=== PATIENT | female | born 1955 | race Caucasian/White ===

== ENCOUNTER → 2023-06-09 09:57 | Outpatient (CLI) | payer MEDICARE, MEDICAID, SELFPAY ==
[2023-06-09 10:28] LABS: Basophils % 0.6 % (0.1-2.0); Eosinophils # 0.2 K/mm3 (0.0-0.4); Eosinophils % 2.2 % (0.1-12.0); Hematocrit 41.5 % (37.0-47.0); Hemoglobin 13.7 g/dL (12.2-16.2); Lymphocytes # 1.2 K/mm3 (0.7-4.5); Lymphocytes % 17.1 % (10-50); Mean Corpuscular HGB Conc 33.1 g/dL (31.8-35.4); Mean Corpuscular Hemoglobin 29.1 pg (27.0-31.2); Mean Corpuscular Volume 88.1 fl (81-99); Mean Platelet Volume 7.9 fl (7.4-10.4); Monocytes # 0.6 K/mm3 (0.1-1.0); Monocytes % 8.4 % (1.7-9.3); Neutrophils # 4.9 K/mm3 (1.8-7.8); Neutrophils % 71.7 % (37.0-80.0); Platelet Count 208 K/mm3 (142-424); Red Blood Count 4.71 M/mm3 (4.20-5.40); Red Cell Distribution Width 13.9 % (11.5-17.5); White Blood Count 6.9 K/mm3 (4.8-10.8)
[2023-06-09 10:38] LABS: Hemoglobin A1C 5.4 % (4.0-6.0)
[2023-06-09 11:14] LABS: Alanine Aminotransferase 25 U/L (12-78); Albumin/Globulin Ratio 1.4 (1.1-1.8); Alkaline Phosphatase 65 U/L (38-126); Anion Gap 14.4 mEq/L (5-15); Aspartate Amino Transferase 26 U/L (14-36); Blood Urea Nitrogen 13 mg/dl (7-17); Calcium 8.9 mg/dl (8.4-10.2); Carbon Dioxide 27 mmol/L (22.0-30.0); Chloride 102 mmol/L (98-107); Cholesterol 170 mg/dl (140-200); Estimated Glomerular Filt Rate 83 ml/min (>60); GFR (African American) 100 ML/MIN (>60); Globulin 2.9 g/dL (1.3-3.2); Glucose 81 mg/dl (74-100); HDL Cholesterol 43 mg/dl (40-60); Potassium 4.4 mmoL/L (3.5-5.1); Sodium 139 mmol/L (136-145); Total Protein,Serum 6.9 g/dl (6.3-8.2)
[2023-06-09 11:17] LABS: Bilirubin,Total < 0.1 mg/dl (0.2-1.3); Triglycerides 431 mg/dl (30-150)
[2023-06-09 11:25] LABS: Creatinine,Urine Random 34 mg/dL (Not Estab.); Direct LDL Cholesterol 77.59 mg/dL (100-129)
[2023-06-09 11:29] LABS: Microalbumin < 6.000 mg/L (0-16.7)
[2023-06-09 11:44] LABS: Thyroid Stimulating Hormone 1.08 uIU/mL (0.465-4.68)
[2023-06-09 12:02] LABS: Vitamin B12 789 pg/mL (239-931)
== END ==
PROVIDERS: PCP Nurse Practitioner Family; Visit Provider Nurse Practitioner Family
DX: I10 Essential (primary) hypertension (principal); E11.9 Type 2 diabetes mellitus without complications; F02.80 Dementia in other diseases classified elsewhere, unspecified severity, without behavioral disturbance, psychotic disturbance, mood disturbance, and anxiety; G30.9 Alzheimer's disease, unspecified; G43.709 Chronic migraine without aura, not intractable, without status migrainosus; R53.81 Other malaise
CPT/HCPCS: 36415; 80053; 80061; 82043; 82570; 82607; 83036; 84443; 85025

== ENCOUNTER → 2023-07-27 10:01 | Outpatient (CLI) | payer MEDICARE, MEDICAID, SELFPAY ==
[2023-07-27 10:52] LABS: Basophils % 0.6 % (0.1-2.0); Eosinophils # 0.2 K/mm3 (0.0-0.4); Eosinophils % 2.9 % (0.1-12.0); Hematocrit 38.1 % (37.0-47.0); Hemoglobin 13.5 g/dL (12.2-16.2); Lymphocytes # 1.3 K/mm3 (0.7-4.5); Lymphocytes % 24.8 % (10-50); Mean Corpuscular HGB Conc 35.5 g/dL (31.8-35.4); Mean Corpuscular Hemoglobin 30.8 pg (27.0-31.2); Mean Corpuscular Volume 86.6 fl (81-99); Mean Platelet Volume 7.7 fl (7.4-10.4); Monocytes # 0.7 K/mm3 (0.1-1.0); Monocytes % 13.1 % (1.7-9.3); Neutrophils # 3.1 K/mm3 (1.8-7.8); Neutrophils % 58.6 % (37.0-80.0); Platelet Count 196 K/mm3 (142-424); Red Cell Distribution Width 13.5 % (11.5-17.5); White Blood Count 5.2 K/mm3 (4.8-10.8)
[2023-07-27 11:26] LABS: Alanine Aminotransferase 23 U/L (12-78); Albumin Level 4.2 g/dl (3.5-5.0); Albumin/Globulin Ratio 1.6 (1.1-1.8); Alkaline Phosphatase 44 U/L (38-126); Anion Gap 11.6 mEq/L (5-15); Aspartate Amino Transferase 30 U/L (14-36); Blood Urea Nitrogen 15 mg/dl (7-17); Calcium 9.1 mg/dl (8.4-10.2); Carbon Dioxide 28 mmol/L (22.0-30.0); Chloride 99 mmol/L (98-107); Estimated Glomerular Filt Rate 71 ml/min (>60); GFR (African American) 86 ML/MIN (>60); Globulin 2.7 g/dL (1.3-3.2); Glucose 80 mg/dl (74-100); Lactate Dehydrogenase 175 U/L (313-618); Potassium 4.6 mmoL/L (3.5-5.1); Sodium 134 mmol/L (136-145); Total Protein,Serum 6.9 g/dl (6.3-8.2)
[2023-07-27 11:49] LABS: Bilirubin,Total 0.1 mg/dl (0.2-1.3)
== END ==
PROVIDERS: PCP Nurse Practitioner Family; Visit Provider Internal Medicine Medical Oncology
DX: C85.90 Non-Hodgkin lymphoma, unspecified, unspecified site (principal)
CPT/HCPCS: 36415; 80053; 83615; 85025

== ENCOUNTER → 2023-08-03 09:06 | Outpatient (CLI) | payer MEDICARE, MEDICAID, SELFPAY ==
--- NOTE | 2023-08-03 09:10 | XR_ITS ---
FINAL REPORT CLINICAL HISTORY: left knee pain FINDINGS: AP, lateral and oblique views of the left knee were obtained. There is no prior exam for comparison. There is no acute osseous abnormality of the left knee. The joint space is preserved. The soft tissues are normal. There is no joint effusion. IMPRESSION: No acute osseous abnormality of the left knee. Reviewed, Interpreted and Dictated by Christa Pisano MD Transcribed by Radha Eason Authenticated and [facility]
--- NOTE | 2023-08-03 09:10 | XR_ITS ---
FINAL REPORT CLINICAL HISTORY: right knee pain FINDINGS: AP, lateral and oblique views of the right knee were obtained. There is no prior exam for comparison. There is no acute osseous abnormality of the right knee. The joint space is preserved. The soft tissues are normal. There is no joint effusion. IMPRESSION: No acute osseous abnormality of the right knee. Reviewed, Interpreted and Dictated by Christa Pisano MD Transcribed by Radha Eason Authenticated and [facility]
== END ==
LOC: RAD 09:07
PROVIDERS: PCP Nurse Practitioner Family; Visit Provider Orthopaedic Surgery
DX: M25.562 Pain in left knee (principal); M25.561 Pain in right knee
CPT/HCPCS: 73562

== ENCOUNTER → 2023-08-08 20:08 | Outpatient (CLI) | payer MEDICARE, MEDICAID, SELFPAY | PROVIDERS: PCP Nurse Practitioner Family; Visit Provider Nurse Practitioner Family | DX: G47.33 Obstructive sleep apnea (adult) (pediatric) (principal) | CPT/HCPCS: 95810 ==

== ENCOUNTER 2023-10-23 10:25 | Outpatient (CLI) | payer MEDICARE, MEDICAID, SELFPAY ==
[2023-10-23 11:37] LABS: Basophils # 0.1 K/mm3 (0-0.2); Basophils % 0.9 % (0.1-2.0); Eosinophils # 0.1 K/mm3 (0.0-0.4); Eosinophils % 2.4 % (0.1-12.0); Hemoglobin 14.3 g/dL (12.2-16.2); Lymphocytes # 1.7 K/mm3 (0.7-4.5); Lymphocytes % 33.9 % (10-50); Mean Corpuscular HGB Conc 34.1 g/dL (31.8-35.4); Mean Corpuscular Hemoglobin 30.7 pg (27.0-31.2); Mean Corpuscular Volume 90.1 fl (81-99); Monocytes # 0.6 K/mm3 (0.1-1.0); Monocytes % 11.8 % (1.7-9.3); Neutrophils # 2.6 K/mm3 (1.8-7.8); Neutrophils % 51.1 % (37.0-80.0); Platelet Count 202 K/mm3 (142-424); Red Blood Count 4.66 M/mm3 (4.20-5.40); White Blood Count 5.1 K/mm3 (4.8-10.8)
[2023-10-23 12:04] LABS: Alanine Aminotransferase 24 U/L (12-78); Albumin/Globulin Ratio 1.5 (1.1-1.8); Alkaline Phosphatase 44 U/L (38-126); Anion Gap 10.6 mEq/L (5-15); Aspartate Amino Transferase 28 U/L (14-36); Bilirubin,Total 0.4 mg/dl (0.2-1.3); Blood Urea Nitrogen 19 mg/dl (7-17); Calcium 9.3 mg/dl (8.4-10.2); Carbon Dioxide 27 mmol/L (22.0-30.0); Chloride 107 mmol/L (98-107); Estimated Glomerular Filt Rate 62 ml/min (>60); GFR (African American) 75 ML/MIN (>60); Globulin 2.6 g/dL (1.3-3.2); Glucose 94 mg/dl (74-100); Lactate Dehydrogenase 173 U/L (313-618); Potassium 4.6 mmoL/L (3.5-5.1); Sodium 140 mmol/L (136-145); Total Protein,Serum 6.6 g/dl (6.3-8.2)
== END 2023-10-23 23:59 ==
PROVIDERS: PCP Internal Medicine Adolescent Medicine; Visit Provider Internal Medicine Medical Oncology
DX: C85.90 Non-Hodgkin lymphoma, unspecified, unspecified site (principal)
CPT/HCPCS: 36415; 80053; 83615; 85025

== ENCOUNTER 2023-10-25 08:27 | Outpatient (CLI) | payer MEDICARE, MEDICAID, SELFPAY ==
--- NOTE | 2023-10-25 08:43 | CT_ITS ---
FINAL REPORT CLINICAL HISTORY: .lymphoma FINDINGS: CT CHEST without contrast COMPARISON: None . TECHNIQUE: Axial CT without IV contrast administration. FINDINGS: No acute lung disease is present . A 4 mm nodule seen in the right lung apex posteriorly. This is nonspecific. No pleural or pericardial effusion is seen . No adenopathy or mass lesion is present . Axillary regions are unremarkable. IMPRESSION: 1. No intrathoracic or axillary adenopathy 2. Nonspecific 4 mm right apical nodule. Favor benign. CT follow-up recommended in 6 months. This study was performed using automated techniques to achieve radiation exposure as low as reasonably achievable Authenticated and [facility]
--- NOTE | 2023-10-25 08:43 | CT_ITS ---
FINAL REPORT TECHNIQUE: Oral and IV contrast enhanced exam CLINICAL HISTORY: HX LYMPHOMA FINDINGS: Abdomen: Lung bases are clear. The gallbladder is surgically absent. No adenopathy is present. Spleen is unremarkable. Liver has an unremarkable CT appearance. The pancreas and adrenal glands are unremarkable. Kidneys show no mass or obstruction. No bowel obstruction or fluid collection is seen. Pelvis: The appendix is not visualized. Pelvic bowel loops are unremarkable. No fluid collection or adenopathy is seen. Patient is status post hysterectomy. No iliac chain or inguinal adenopathy is present. IMPRESSION: Unremarkable CT evaluation of the abdomen and pelvis. No adenopathy. Authenticated and [facility]
[2023-10-25] MEDS: IOPAMIDOL-370 (76%);100ML BOTTLE 75 ML IV (09:35)
[2023-10-25] MEDS: SODIUM CHLORIDE 0.9% 10ML SYR (RAD ONLY) 10 ML IV (09:35)
[2023-10-25 10:20] LABS: Iron 75 ug/dL (37-170)
[2023-10-25 10:29] LABS: Total Iron Binding Capacity 365 ug/dL (265-497)
[2023-10-25 10:31] LABS: Thyroid Stimulating Hormone 3.01 uIU/mL (0.465-4.68)
[2023-10-25 10:56] LABS: Ferritin 12.6 ng/ml (11.1-264)
[2023-10-25 11:06] LABS: Vitamin B12 784 pg/mL (239-931)
[2023-10-25 11:13] LABS: Folate > 20.00 ng/mL
== END 2023-10-25 23:59 ==
PROVIDERS: Nurse Practitioner Family; PCP Nurse Practitioner Family; Visit Provider Internal Medicine Medical Oncology
DX: R41.3 Other amnesia (principal); E83.10 Disorder of iron metabolism, unspecified; Z85.72 Personal history of non-Hodgkin lymphomas
CPT/HCPCS: 36415; 71260; 74177; 82607; 82728; 82746; 83540; 83550; 84443; Q9967

== ENCOUNTER 2023-11-06 16:50 | Emergency (ER) | payer MEDICARE, MEDICAID, SELFPAY ==
[2023-11-06 16:52] VITALS: BP 201/95; PULSE 72; RESP 20; TEMP 36.8; O2SAT 98; BMI 27.3
--- NOTE | 2023-11-06 17:13 | XR_ITS ---
PROCEDURE INFORMATION: Exam: XR Chest Exam date and time: 11/06/2023 5:26 PM Age: 68 years old Clinical indication: Cough TECHNIQUE: Imaging protocol: Radiologic exam of the chest. Views: 1 view. COMPARISON: CT CHEST W CON 10/25/2023 9:17 AM FINDINGS: Lungs: Bibasilar airspace opacities may represent early consolidation/multifocal pneumonia. Pleural spaces: Unremarkable. No pleural effusion. No pneumothorax. Heart/Mediastinum: Unremarkable. No cardiomegaly. Bones/joints: Unremarkable. IMPRESSION: Bibasilar airspace opacities may represent early consolidation/multifocal pneumonia in the appropriate clinical setting.
--- NOTE | 2023-11-06 17:14 | ED_ITS ---
Discharge Plan Disposition Patient Disposition: Home, Self-Care Prescriptions Prescriptions: New azithromycin [Zithromax Z-Julio] 250 mg tablet 250 mg PO DAILY 4 Days Qty: 4 0RF Rx Instructions: start on day 2 of therapy cefdinir 300 mg capsule 300 mg PO BID 7 Days Qty: 14 0RF prednisone 50 mg tablet 50 mg PO DAILY 4 Days Qty: 4 0RF No Action fenofibrate nanocrystallized 48 mg tablet PO Patient Comments: TAKE 1 TABLET BY MOUTH ONCE DAILY losartan 50 mg tablet 50 mg PO DAILY docusate sodium 100 mg capsule 100 mg PO DAILY oxcarbazepine 600 mg tablet 600 mg PO BID escitalopram oxalate 20 mg tablet 20 mg PO QHS alendronate 70 mg tablet 70 mg PO WEEKLY aspirin [Adult Aspirin Regimen] 81 mg tablet,delayed release (DR/EC) 81 mg PO DAILY albuterol-budesonide 90-80 mcg/actuation HFA aerosol inhaler 2 inh inhalation DAILY PRN metformin 500 mg tablet 500 mg PO DAILY atorvastatin [Lipitor] 40 mg tablet 40 mg PO HS famotidine 20 mg tablet 20 mg PO HS estradiol 1 mg tablet 1 mg PO DAILY Rx Instructions: off 1 week; repeat cycle amitriptyline 10 mg tablet 10 mg PO HS topiramate 50 mg tablet 50 mg PO BID omeprazole 20 mg capsule,delayed release(DR/EC) 20 mg PO DAILY montelukast 10 mg tablet 10 mg PO HS metoprolol succinate 25 mg tablet extended release 24 hr 25 mg PO DAILY trazodone 100 mg tablet 100 mg PO HS PRN memantine 10 mg tablet 10 mg PO BID Qty: 30 5RF donepezil 10 mg tablet 10 mg PO HS Qty: 30 5RF Referrals Follow up/Referrals: Raad Aragon MD [Primary Care Provider] - See instructions Activity Restrictions/Add. Instructions Additional Instructions/Restrictions: At this time it was felt you are safe to be discharged home. If new or worsening symptoms please do not hesitate to return the emergency department. If symptoms persist please follow-up with your family doctor as you are able. Please take your medications as prescribed. Clinical Impressions Clinical Impression: Acute exacerbation of chronic obstructive pulmonary disease, Pneumonia Discharge ED Provider: Pee Kramer General Adult HPI General Chief complaint: Upper Respiratory Infection Stated complaint: cough, sore throat, fever Time Seen by Provider: 11/06/23 16:58 Mode of Arrival: Ambulatory Source of Information: Patient Limitations: No Limitations Description of Symptoms (Recalled from ER Triage Doc. by RN): pt has had a cough x 1 week and has tried several differnt OTC treatments as well as rescue inhaler and nebulizer, as week as progressed patient has gotten a headache, sore throat, runny nose History of Present Illness HPI narrative: Patient is a 68-year-old female past medical history of [id number] diabetes, COPD who presents to the emergency department for evaluation of shortness of breath and cough. Onset was acute, last 6 to 7 days, there is associated rhinorrhea. Symptoms have been refractory to yece-ygn-[id number] cough medication. There has been some response to her DuoNebs at home. Due to persistent symptoms she presents here for continued evaluation. Related Data Home Medications Medication Instructions Recorded Confirmed albuterol 90 mcg-budesonide 80 2 inh inhalation DAILY PRN 07/25/23 10/31/23 mcg/actuation HFA aerosol inhaler alendronate 70 mg tablet 70 mg PO WEEKLY 07/25/23 10/31/23 amitriptyline 10 mg tablet 10 mg PO HS 07/25/23 10/31/23 aspirin 81 mg tablet,delayed 81 mg PO DAILY 07/25/23 10/31/23 release (Adult Aspirin Regimen) atorvastatin 40 mg tablet (Lipitor) 40 mg PO HS 07/25/23 10/31/23 docusate sodium 100 mg capsule 100 mg PO DAILY 07/25/23 10/31/23 escitalopram oxalate 20 mg tablet 20 mg PO QHS 07/25/23 10/31/23 estradiol 1 mg tablet 1 mg PO DAILY 07/25/23 10/31/23 famotidine 20 mg tablet 20 mg PO HS 07/25/23 10/31/23 fenofibrate nanocrystallized 48 mg mg PO 07/25/23 10/31/23 tablet losartan 50 mg tablet 50 mg PO DAILY 07/25/23 10/31/23 metformin 500 mg tablet 500 mg PO DAILY 07/25/23 10/31/23 metoprolol succinate 25 mg 25 mg PO DAILY 07/25/23 10/31/23 tablet,extended release 24 hr montelukast 10 mg tablet 10 mg PO HS 07/25/23 10/31/23 omeprazole 20 mg capsule,delayed 20 mg PO DAILY 07/25/23 10/31/23 release oxcarbazepine 600 mg tablet 600 mg PO BID 07/25/23 10/31/23 topiramate 50 mg tablet 50 mg PO BID 07/25/23 10/31/23 trazodone 100 mg tablet 100 mg PO HS PRN 07/25/23 10/31/23 Previous Rx's Medication Instructions Recorded donepezil 10 mg tablet 10 mg PO HS Memory loss #30 tabs 10/24/23 memantine 10 mg tablet 10 mg PO BID #30 tabs 10/24/23 azithromycin 250 mg tablet 250 mg PO DAILY 4 days #4 tabs 11/06/23 (Zithromax Z-Julio) cefdinir 300 mg capsule 300 mg PO BID 7 days #14 caps 11/06/23 prednisone 50 mg tablet 50 mg PO DAILY 4 days #4 tabs 11/06/23 Allergies Allergy/AdvReac Type Severity Reaction Status Date / Time No Known Allergies Allergy Verified 10/31/23 09:57 [facility] Disclaimer: The information contained in this section may have been updated after the patient was seen, as this information can be updated by other users. Medical History Anxiety Cataracts, bilateral COPD (chronic obstructive pulmonary disease) Depression DM type 2 (diabetes mellitus, type 2) GERD (gastroesophageal reflux disease) Hyperlipidemia Lymphoma Surgical History H/O total hysterectomy H/O tubal ligation History of carpal tunnel release History of cholecystectomy Family History Other Cancer Hyperlipidemia Hypertension Social History Smoking Status: Never smoker alcohol intake: never current occupational status: unemployed Travel in the last 8 weeks: None ROS Obtained: Yes Systems reviewed as appropriate & no additional complaints except as documented Physical Exam General General appearance: alert and in no apparent distress Head Head exam: atraumatic and normocephalic Eye Eye exam: Present PERRL and EOMI ENT ENT exam: Present mucous membranes moist Neck Neck exam: Present normal inspection Chest Chest inspection: Present normal inspection and symmetric chest wall rise Respiratory Respiratory exam: Present wheezes (end expiratory); Absent respiratory distress Cardiovascular Cardiovascular exam: Present regular rate and normal rhythm Abdominal Exam Abdominal exam: Present soft Extremities Exam Extremities exam: Present normal inspection Neurological Exam Neurological exam: Present alert Psychiatric Psychiatric exam: Present normal affect Skin Skin exam: Present warm and dry Medical Decision Making Billy Inquiry Pt receiving controlled substance: No Vital Signs: 11/06/23 16:52 11/06/23 17:20 11/06/23 18:01 Temperature 98.3 F Temperature Source Oral Pulse Rate 74 78 Pulse Rate [Right Radial] 72 Respiratory Rate 20 20 20 Blood Pressure 187/93 H 204/87 H Blood Pressure [Right Arm] 201/95 H Blood Pressure Mean 96 126 Blood Pressure Mean [Right Arm] 130 02 Sat by Pulse Oximetry 98 98 100 Oxygen Delivery Method Room Air 11/06/23 18:23 11/06/23 18:23 Temperature Temperature Source Pulse Rate 78 65 Pulse Rate [Right Radial] Respiratory Rate Blood Pressure Blood Pressure [Right Arm] Blood Pressure Mean Blood Pressure Mean [Right Arm] 02 Sat by Pulse Oximetry Oxygen Delivery Method Lab Data Lab Results 11/06/23 17:00: SARS-CoV-2 (PCR) Not detected, Influenza A Untype (PCR) Not detected, Influenza Type B (PCR) Not detected Orders (Tests/Meds): ED MEDICATIONS Discontinued Medications Generic Name Dose Route Start Last Admin Trade Name Freq PRN Reason Stop Dose Admin Albuterol/Ipratropium 6 ml 11/06/23 17:11 11/06/23 17:25 Ipratropium/Albuterol 3 Ml Neb 11/06/23 17:12 6 ml ONCE ONE Administration Azithromycin 500 mg 11/06/23 17:11 11/06/23 17:26 Azithromycin 250mg Tablet PO 11/06/23 17:12 500 mg ONCE ONE Administration Lidocaine HCl 5 ml 11/06/23 18:19 11/06/23 18:21 Lidocaine 2% 20ml Vial IH 11/06/23 18:20 5 ml ONCE ONE Administration Prednisone 40 mg 11/06/23 17:11 11/06/23 17:26 Prednisone 20mg Tab PO 11/06/23 17:12 40 mg ONCE ONE Administration ORDERS Category Date Time Status CXR --portable [XR chest portable] Stat Exams 11/06/23 17:13 Completed Rapid PCR Covid and Flu A/B Stat Lab 11/06/23 17:00 Completed Medical Decision Narrative: In summary patient is a 68-year-old female with past medical history described above who presents emergency department for evaluation of shortness of breath and cough in the setting of COPD. Patient is hemodynamically stable nontoxic- appearing upon arrival, afebrile. Patient has an expiratory wheezes, no significant respiratory distress, there is rhinorrhea and cough on exam. Differential includes viral induced COPD exacerbation, pneumonia, among others. Limited workup will be conducted with chest x-ray, viral swab. Initial inventions include DuoNeb's x 2, fingerstick, prednisone, azithromycin. Workup with additional hematologic labs was considered however given the patient is afebrile, no significant tachycardia, only mild expiratory wheezing on exam will be deferred. Chest x-ray informally interpreted by me, no dense lobar opacities, formal read shows bilateral multifocal hazy opacities which may be reflective of developing pneumonia. Given that patient has persistent cough in setting of COPD patient will be treated empirically with cefdinir and azithromycin as well as a prescription for steroids. Upon repeat evaluation patient had persistent cough, good air movement. Lidocaine nebulization was administered with success. I have no concern for sepsis, no new oxygen requirement or significant respiratory distress to warrant further workup or imaging at this time. Given this patient is appropriate for discharge and was given multiple return precautions and verbalized understanding. Critical Care Critical Care Time Critical Care Time: No
[2023-11-06 17:17] LABS: Coronavirus 19, PCR Not Detected (NotDetected); Influenza A, PCR Not Detected (NotDetected); Influenza B, PCR Not Detected (NotDetected)
[2023-11-06 17:20] VITALS: BP 187/93; PULSE 74; RESP 20; O2SAT 98
[2023-11-06] MEDS: IPRATROPIUM/ALBUTEROL 3 ML NEB 6 ML IH (17:25)
[2023-11-06] MEDS: AZITHROMYCIN 250MG TABLET 500 MG PO (17:26)
[2023-11-06] MEDS: predniSONE 20MG TAB 40 MG PO (17:26)
[2023-11-06 18:01] VITALS: BP 204/87; PULSE 78; RESP 20; O2SAT 100
[2023-11-06] MEDS: LIDOCAINE 2% 20ML VIAL 5 ML IH (18:21)
[2023-11-06 18:23] VITALS: PULSE 65; PULSE 78
[2023-11-06 18:40] VITALS: BP 157/68; PULSE 62; RESP 20; O2SAT 100
[2023-11-06 18:52] VITALS: BP 157/68; PULSE 67; RESP 20; TEMP 36.8; O2SAT 97
== END 2023-11-06 18:53 | disposition home or self-care (01) ==
PROVIDERS: Emergency Provider Emergency Medicine; PCP Internal Medicine Adolescent Medicine
DX: J18.8 Other pneumonia, unspecified organism (principal); J44.1 Chronic obstructive pulmonary disease with (acute) exacerbation; R05.9 Cough, unspecified; E11.9 Type 2 diabetes mellitus without complications; K21.9 Gastro-esophageal reflux disease without esophagitis; E78.5 Hyperlipidemia, unspecified; Z79.84 Long term (current) use of oral hypoglycemic drugs
CPT/HCPCS: 71045; 87636; 99284